=== PATIENT | female | born 1960 | race Hispanic/Latino ===

== ENCOUNTER 2024-11-17 11:03 | Inpatient (IN) | payer OTHER ==
[~2024-11-17] VITALS: Ht 157.5 cm; Wt 72.6 kg
[2024-11-17] VITALS (25 sets, daily range): BP systolic 93–119; BP diastolic 44–81; PULSE 98–110; RESP 14–35; TEMP 97.4–98.5; O2SAT 96–100
[2024-11-17] MEDS ORDERED: CLOPIDOGREL BISULFATE 75 MG TAB ONE (11:20)
[2024-11-17] MEDS: METOPROLOL TARTRATE 25 MG TAB PO ONE (11:25)
[2024-11-17] MEDS: ASPIRIN 81 MG CHEW TAB PO ONE (11:26)
[2024-11-17] MEDS: SODIUM CHLORIDE 0.9% 1000ML 1,000 ML IV STA (11:27)
[2024-11-17 11:32] LABS: BASOPHILS % 0.1 % (0.0-1.0); EOSINOPHILS # (AUTO) 0.1 (0.0-0.4); EOSINOPHILS % 1.1 % (0.0-6.0); HEMATOCRIT 35.6 % (34.2-44.1); HEMOGLOBIN 11.3 g/dL (12.0-16.0); LYMPHOCYTES # (AUTO) 1.5 (1.0-3.2); LYMPHOCYTES % 17.4 % (18.0-39.1); MEAN CORPUSCULAR HEMOGLOBIN 26.8 pg (28-32); MEAN CORPUSCULAR HGB CONC 31.7 g/dL (31-35); MEAN CORPUSCULAR VOLUME 84.4 fL (81-99); MONOCYTES # (AUTO) 0.5 (0.2-0.8); MONOCYTES % 6.4 % (4.4-11.3); NEUTROPHILS # (AUTO) 6.2 (2.1-6.9); NEUTROPHILS % 74.8 % (38.7-80.0); PLATELET COUNT 129 x10e3/uL (140-360); RED BLOOD COUNT 4.22 x10e6/uL (3.6-5.1); RED CELL DISTRIBUTION WIDTH 18.2 % (11.7-14.4); WHITE BLOOD COUNT 8.34 x10e3/uL (4.8-10.8)
[2024-11-17] MEDS: CLOPIDOGREL BISULFATE 75 MG TAB PO ONE (11:42)
[2024-11-17 11:45] LABS: INR 0.93
[2024-11-17 11:46] LABS: PARTIAL THROMBOPLASTIN TIME 27.4 seconds (23.8-35.5)
[2024-11-17 11:56] LABS: ALBUMIN 3.9 g/dL (3.5-5.0); ALBUMIN/GLOBULIN RATIO 1.2 (0.8-2.0); ANION GAP 14.1 mmol/L (8-16); BILIRUBIN,TOTAL 0.5 mg/dL (0.2-1.2); CALCIUM 10.1 mg/dL (8.4-10.2); CREATININE, SERUM 0.82 mg/dL (0.57-1.11); MAGNESIUM 1.6 MG/DL (1.3-2.1); POTASSIUM 4.1 mmol/L (3.5-5.1); TOTAL PROTEIN 7.2 g/dL (6.5-8.1)
[2024-11-17 12:20] LABS: TROPONIN I 4.511 ng/mL (0-0.300)
[2024-11-17] MEDS ORDERED: SODIUM CHLORIDE 0.9% 1000ML 1,000 ML ONE (12:23)
[2024-11-17] MEDS ORDERED: ONDANSETRON HCL INJ 2MG/ML 2ML 2 MG/ML VIAL IV PRN (16:15)
[2024-11-17] MEDS: INSULIN REGULAR, HUMAN 100 UNIT/1 ML SQ SCH (16:30)
[2024-11-17] MEDS: SODIUM CHLORIDE 0.9% 1000ML 1,000 ML IV SCH (17:08)
[2024-11-17] MEDS: METOPROLOL TARTRATE 25 MG TAB PO SCH (17:09)
[2024-11-17 18:44] LABS: TROPONIN I 4.431 ng/mL (0-0.300)
[2024-11-17] MEDS: LIDOCAINE HCL 2% LOCAL 20 ML VIAL ONE (20:08)
[2024-11-17] MEDS: HEPARIN SOD/SOD CHLORIDE 2,000 ML ONE (20:08)
[2024-11-17] MEDS: VERAPAMIL HCL 2.5 MG/ML 2 ML VIAL ONE (20:08)
[2024-11-17] MEDS: HEPARIN SOD (PORCINE) 1000 UNIT/ML 30ML ONE (20:08)
[2024-11-17] MEDS: IOPAMIDOL 370 MG/ML 100 ML INFUS..BTL INJ ONE (20:08)
[2024-11-17] MEDS: MIDAZOLAM HCL 2 MG/2 ML VIAL ONE (20:09)
[2024-11-17] MEDS: BIVALRIUDIN 250 MG/VIAL VIAL IV ONE (20:09)
[2024-11-17] MEDS: NITROGLYCERIN/D5W 200 MCG/ML 250 ML ONE (20:09)
[2024-11-17] MEDS: SODIUM CHLORIDE 0.9% 1000ML 1,000 ML ONE (20:09)
[2024-11-17] MEDS: CLOPIDOGREL BISULFATE 75 MG TAB ONE (20:09)
[2024-11-17] MEDS: FENTANYL CITRATE/PF 100MCG/2 ML INJ ONE (20:09)
[2024-11-17] MEDS: LISINOPRIL 2.5 MG TAB PO SCH (21:00)
[2024-11-17] MEDS: ATORVASTATIN 40 MG TAB PO SCH (21:14)
[2024-11-17] MEDS: ACETAMINOPHEN 325 MG TAB PO PRN (21:14)
[2024-11-18] VITALS (30 sets, daily range): BP systolic 100–126; BP diastolic 62–76; PULSE 97–106; RESP 16–32; TEMP 97.1–99.2; O2SAT 97–100
[2024-11-18 06:47] LABS: BASOPHILS % 0.2 % (0.0-1.0); EOSINOPHILS # (AUTO) 0.1 (0.0-0.4); EOSINOPHILS % 1.2 % (0.0-6.0); HEMATOCRIT 31.4 % (34.2-44.1); HEMOGLOBIN 10.2 g/dL (12.0-16.0); LYMPHOCYTES # (AUTO) 1.1 (1.0-3.2); LYMPHOCYTES % 18.4 % (18.0-39.1); MEAN CORPUSCULAR HEMOGLOBIN 27.2 pg (28-32); MEAN CORPUSCULAR HGB CONC 32.5 g/dL (31-35); MEAN CORPUSCULAR VOLUME 83.7 fL (81-99); MONOCYTES # (AUTO) 0.5 (0.2-0.8); MONOCYTES % 8.2 % (4.4-11.3); NEUTROPHILS # (AUTO) 4.3 (2.1-6.9); NEUTROPHILS % 71.7 % (38.7-80.0); RED BLOOD COUNT 3.75 x10e6/uL (3.6-5.1); RED CELL DISTRIBUTION WIDTH 18.1 % (11.7-14.4); WHITE BLOOD COUNT 5.94 x10e3/uL (4.8-10.8)
[2024-11-18 06:51] LABS: PLATELET COUNT 122 x10e3/uL (140-360)
[2024-11-18 07:25] LABS: ANION GAP 10.3 mmol/L (8-16); BILIRUBIN,TOTAL 0.6 mg/dL (0.2-1.2); CALCIUM 9.1 mg/dL (8.4-10.2); CHOL/HDL RATIO 1.6 (3.0-3.6); CREATININE, SERUM 0.69 mg/dL (0.57-1.11); POTASSIUM 4.3 mmol/L (3.5-5.1); TOTAL PROTEIN 5.9 g/dL (6.5-8.1)
[2024-11-18] MEDS: DEXTROSE 50% SYRINGE 50 ML IV PRN (07:59)
[2024-11-18 08:09] LABS: TROPONIN I 6.48 ng/mL (0-0.300)
[2024-11-18] MEDS: CLOPIDOGREL BISULFATE 75 MG TAB PO SCH (08:36)
[2024-11-18] MEDS: ASPIRIN 81 MG ENTERIC COATED PO SCH (10:18)
[2024-11-19 03:00] VITALS: BP 111/65; PULSE 93; RESP 14; TEMP 98.4; O2SAT 100
[2024-11-19 07:00] VITALS: BP 118/75; PULSE 90; RESP 15; TEMP 98; O2SAT 99
[2024-11-19] MEDS: METOPROLOL SUCCINATE 25 MG TAB XL PO SCH (08:05)
[2024-11-19 09:26] VITALS: BP 118/75; PULSE 90; RESP 15; TEMP 98; O2SAT 99
[2024-11-19 12:00] VITALS: PULSE 92; TEMP 98.2; O2SAT 96
[2024-11-19] MEDS ORDERED: ASPIRIN EC81 MG PO (13:06)
[2024-11-19] MEDS ORDERED: TOPROL XL25 MG PO (13:06)
[2024-11-19] MEDS ORDERED: LISINOPRIL2.5 MG PO (13:06)
[2024-11-19] MEDS ORDERED: PLAVIX75 MG PO (13:06)
== END 2024-11-19 14:54 | disposition home or self-care (01) | DRG 321 ==
LOC: ER 11:14 → ERHOLD 12:39 → ICU 15:42
PROVIDERS: ADMIT Internal Medicine; ATTEND Internal Medicine
PROC: 027035Z Dilation of Coronary Artery, One Artery with Two Drug-eluting Intraluminal Devices, Percutaneous Approach (ICD-10-PCS; principal; 2024-11-17)
PROC: 02703ZZ Dilation of Coronary Artery, One Artery, Percutaneous Approach (ICD-10-PCS; 2024-11-17)
PROC: B2111ZZ Fluoroscopy of Multiple Coronary Arteries using Low Osmolar Contrast (ICD-10-PCS; 2024-11-17)
PROC: B2151ZZ Fluoroscopy of Left Heart using Low Osmolar Contrast (ICD-10-PCS; 2024-11-17)
PROC: 4A023N7 Measurement of Cardiac Sampling and Pressure, Left Heart, Percutaneous Approach (ICD-10-PCS; 2024-11-17)
DX: I21.4 Non-ST elevation (NSTEMI) myocardial infarction (principal); I50.21 Acute systolic (congestive) heart failure; I11.0 Hypertensive heart disease with heart failure; I25.10 Atherosclerotic heart disease of native coronary artery without angina pectoris; D69.6 Thrombocytopenia, unspecified; E78.5 Hyperlipidemia, unspecified; E11.9 Type 2 diabetes mellitus without complications; Z79.4 Long term (current) use of insulin; Z79.84 Long term (current) use of oral hypoglycemic drugs; R00.0 Tachycardia, unspecified; Z79.82 Long term (current) use of aspirin; Z79.02 Long term (current) use of antithrombotics/antiplatelets; Z79.899 Other long term (current) drug therapy
CPT/HCPCS: 36415; 71045; 76937; 80053; 80061; 82550; 82948; 83036; 83735; 83880; 84443; 84484; 85025; 85379; 85610; 85730; 92920; 92928; 93005; 93306; 93458; 94799; 96372; 99152; 99153; 99252; 99284; C1725; C1760; C1769; C1874; C1887; J0583; J1644; J2003; J2250; J7030; J7799; Q9967